=== PATIENT | female | born 1990 | race Caucasian/White ===

== ENCOUNTER 2017-07-09 14:09 | Emergency (ER) | payer SELFPAY ==
[~2017-07-09] VITALS: Ht 162.6 cm; Wt 63.0 kg
[~2017-07-09 14:09] MED LIST: CETI10CA PO; CIPR500T4 PO; GUAI118L94 PO; IBUP-1542 PO
[2017-07-09 14:14] VITALS: Ht 162.6 cm; Wt 63.0 kg
== END 2017-07-09 18:11 | disposition left against medical advice (07) ==
LOC: FTE 14:09
DX: Z53.21 Procedure and treatment not carried out due to patient leaving prior to being seen by health care provider (principal)